=== PATIENT | female | born 1935 | race Caucasian/White ===

== ENCOUNTER 2018-08-16 09:11 | Outpatient (CLI) | payer MEDICARE, MEDICAID ==
--- NOTE | 2018-08-16 11:20 | ULT ---
TRANSABDOMINAL PELVIC ULTRASOUND: Indication: Uterine leiomyoma. Technique: Transabdominal ultrasound of the pelvis was performed. FINDINGS: Uterus is mildly heterogeneous but does not significantly enlarged with uterine measurements recorded at 5.6 x 5.6 x 2.6 cm. The endometrial stripe is not delineated by ultrasound. The right ovary is not identified. The left ovary is poorly seen and is measured at 2.5 x 3.7 cm. A hypoechoic area within this left ova ry may represent a small cyst measuring approximately 1.5 cm. Blood flow could not be confirmed due t o poor visualization due to technical difficulties. IMPRESSION: 1. Overall suboptimal exam. Transabdominal only study was performed. Patient refused endovaginal stud y. Uterus is heterogeneous although a distinct fibroid is not seen on this study. Uterine measurement s are given above. 2. Question small left ovarian cyst. 3. Right ovary not identified. POS: [facility]
== END 2018-08-16 09:12 | disposition home or self-care (01) ==
LOC: SCSULT 09:11
PROVIDERS: ATTEND Internal Medicine Geriatric Medicine
DX: D25.9 Leiomyoma of uterus, unspecified (principal)
CPT/HCPCS: 76856

== ENCOUNTER 2018-09-28 10:55 | Outpatient (CLI) | payer MEDICARE, MEDICAID ==
--- NOTE | 2018-09-28 11:41 | MMO ---
BILATERAL SCREENING MAMMOGRAM: Date: 09/28/18 HISTORY: 83-year-old female. Routine screening mammography. COMPARISON: None. Baseline mammogram. TECHNIQUE: CC and MLO views of both breasts, along with a cleavage view, are submitted for interpretation. This patient's mammogram was reviewed with the assistance of computer-aided detection. FINDINGS: The breasts are composed of scattered fibroglandular tissue. Bilaterally, no suspicious dominant mass , architectural distortion, or suspicious calcifications. Benign-appearing calcification in left [address]. Right retroareolar intramammary lymph node is noted. IMPRESSION: BIRADS 2: Benign Finding(s) RECOMMENDATION: Annual mammogram. POS: [facility]
== END 2018-09-28 10:56 | disposition home or self-care (01) ==
LOC: SCSMAMMO 10:55 → MERGE 10:55 → SCSMAMMO 10:56
PROVIDERS: ATTEND Internal Medicine Geriatric Medicine
DX: Z12.31 Encounter for screening mammogram for malignant neoplasm of breast (principal)
CPT/HCPCS: 77067

== ENCOUNTER 2019-05-19 20:40 | Observation (INO) | payer MEDICARE, MEDICAID ==
[2019-05-19 20:58] LABS: #Basophils 0.1 thou/uL (0.0-0.2); #Eosinphils 0.3 thou/uL (0.0-0.7); #Monocytes 0.8 thou/uL (0.11-0.59); #Neutrophils 4.5 thou/uL (1.40-6.50); %Basophils 1.6 % (0.0-1.0); %Eosinophils 3.5 % (0.0-10.0); %Lymphocytes 34.3 % (21.0-51.0); %Monocytes 9.2 % (0.0-10.0); %Neutrophils 51.4 % (42.0-75.0); Hemoglobin 14.1 g/dL (12.0-16.0); Mean Corpuscular HGB CONC 32.9 g/dL (32.0-36.0); Mean Corpuscular Hemoglobin 32.2 pg (27.0-31.0); Mean Corpuscular Volume 98.1 fL (78.0-98.0); Mean Platelet Volume 8.9 fL (7.4-10.4); Platelet Count 232 thou/uL (130-400); RBC Distribution Width 12.2 % (11.5-14.5); Red Blood Cell (RBC) Count 4.38 mill/uL (4.20-5.40); White Blood Cell (WBC) Count 8.7 thou/uL (4.8-10.8)
[2019-05-19] MEDS ORDERED: Aspirin Chewable 81 MG TAB ONE (21:07)
[2019-05-19] MEDS ORDERED: Nitroglycerin 0.4 MG TAB (25 Tab Bottle) ONE (21:07)
[2019-05-19] MEDS ORDERED: Nitroglycerin 2% Ointment 1 INCH/1 GM Packet ONE (21:11)
--- NOTE | 2019-05-19 21:12 | RAD ---
Exam: Chest one view: HISTORY: Chest pain FINDINGS: Postop midline sternotomy. Minimal horizontal linear parenchymal changes in the left midlung zone hav e a chronic appearance. No confluent pneumonia, overt edema, or pleural effusion. IMPRESSION: Minimal stable chronic lung changes. No significant acute intrathoracic disease.
[2019-05-19 21:23] LABS: ALT (SGPT) 13 U/L (8-55); AST (SGOT) 16 U/L (5-34); Albumin 4.2 g/dL (3.4-4.8); Alkaline Phosphatase 126 U/L (40-110); Anion Gap 17 mmol/L (10-20); BUN (Urea Nitrogen) 24 mg/dL (9.8-20.1); Bilirubin, Total 0.5 mg/dL (0.2-1.2); CK (CPK) 46 U/L (29-168); Calc. Creatinine Clearance 0 mL/min (70-130); Calcium 10.1 mg/dL (7.8-10.44); Carbon Dioxide 23 mmol/L (23-31); Chloride 103 mmol/L (98-107); Estimated GFR-MDRD 33; Globulin 2.7 g/dL (2.4-3.5); Glucose 131 mg/dL (83-110); Potassium 4.1 mmol/L (3.5-5.1); Protein, Total 6.9 g/dL (6.0-8.3); Sodium 139 mmol/L (136-145)
[2019-05-19] MEDS ORDERED: Ondansetron ODT 4 MG TAB SL PRN (23:09)
[2019-05-19] MEDS ORDERED: Acetaminophen 325 MG TAB PO PRN (23:09)
[2019-05-19] MEDS ORDERED: Ondansetron PF 4 MG/2 ML Vial IVP PRN (23:09)
[2019-05-19 23:11] VITALS: BMI 39.6
[2019-05-20 00:03] LABS: Troponin I Less than 0.010 ng/mL (< 0.028)
[2019-05-20] MEDS ORDERED: Nitroglycerin 0.4 MG TAB (25 Tab Bottle) PO PRN (00:51)
--- NOTE | 2019-05-20 01:40 | PDOC.EVN ---
Event Note - Event Note Event Note: [id number] HP
[2019-05-20] MEDS: Dextrose 5 %-0.45 % NaCl 1,000 ML IV SCH ×2 (02:17→15:21)
--- NOTE | 2019-05-20 02:29 | HP ---
CHIEF COMPLAINT: Chest pain. HISTORY OF PRESENT ILLNESS: Ms. Hilliard is an -ekto-arg female with past medical history of coronary artery disease, coronary artery bypass graft surgery, GERD, among others, presents to the emergency room with a chief complaint of chest pain. As per patient, she was really doing well earlier today, and she was feeling good. After that, she started having sudden onset of sharp pain. She took nitroglycerin without relief. The pain is described as sharp, not radiating. Initial workup in the emergency room including troponin and EKG unremarkable. The patient is being admitted to hospital for further management. PAST MEDICAL HISTORY: 1. Coronary artery disease. 2. Obesity. 3. GERD. PAST SURGICAL HISTORY: Coronary artery bypass graft surgery. SOCIAL HISTORY: Denies history of smoking, alcohol drinking, or drug abuse. FAMILY HISTORY: Reviewed and noncontributory. ALLERGIES: NO KNOWN ALLERGIES. HOME MEDICATIONS: Please see home medication reconciliation form for updated medications. REVIEW OF SYSTEMS: Review of 14 systems negative except what is mentioned in the history of present illness. PHYSICAL EXAMINATION: GENERAL: The patient is awake, alert, oriented, does not appear to be in acute distress. VITAL SIGNS: Blood pressure 156/76, pulse 82, respiratory rate is 18, temperature 98.1. HEAD AND NECK: Normocephalic, atraumatic. NECK: Supple. No JVD. CHEST: Fair bilateral air entry. HEART: S1, S2. Regular. ABDOMEN: Soft, nontender. Bowel sounds present. NEUROLOGIC: Awake, alert, oriented x3. PSYCHIATRIC: Normal mood. EXTREMITIES: No clubbing, no cyanosis. LABORATORY DATA: CBC reviewed, unremarkable. Chemistry; BUN is 24, creatinine 1.5, glucose 131, otherwise unremarkable. Troponin less than 0.01. ASSESSMENT: 1. Acute chest pain. 2. Coronary artery disease. 3. History of coronary artery bypass graft surgery. 4. Gastroesophageal reflux disease. PLAN: 1. Admit. 2. Telemetry monitoring. 3. Aspirin. 4. Serial cardiac enzymes. 5. 2D echo. 6. Consult Cardiology in a.m. for evaluation and further recommendations. 7. Reconcile home medications. 8. Deep venous thrombosis prophylaxis, early ambulation/SCD. 9. Expected length of stay at least 1 midnight if the patient is stable and further workup negative. Job ID: [id number]
[2019-05-20 02:35] LABS: Troponin I Less than 0.010 ng/mL (< 0.028)
[2019-05-20 04:50] LABS: Anion Gap 11 mmol/L (10-20); BUN (Urea Nitrogen) 21 mg/dL (9.8-20.1); Calc. Creatinine Clearance 53 mL/min (70-130); Calcium 9.5 mg/dL (7.8-10.44); Carbon Dioxide 24 mmol/L (23-31); Cardiac Risk 2.7 (Less than 4.5); Chloride 107 mmol/L (98-107); Cholesterol 122 mg/dl (< 200 Desired); Estimated GFR-MDRD 46; Glucose 112 mg/dL (83-110); HDL Cholesterol 45 mg/dL (>60 Neg Risk); LDL Cholesterol, Calculated 61 mg/dL; Sodium 138 mmol/L (136-145); Triglycerides 78 mg/dL (Less than 150)
[2019-05-20] MEDS: Heparin 5,000 UNITS/ML VIAL SC SCH ×2 (08:30→20:56)
[2019-05-20] MEDS: Aspirin 325 mg Enteric Coated Tablet PO SCH (08:30)
[2019-05-20] MEDS ORDERED: Prevnar 13-Val Conj/PF 0.5 ML SYRINGE IM ONE (09:00)
[2019-05-20] MEDS ORDERED: Acetaminophen 500 MG TAB PO PRN (13:47)
--- NOTE | 2019-05-20 16:40 | DIS ---
DATE OF ADMISSION: 05/19/2019 DATE OF DISCHARGE: 05/20/2019 DISCHARGE DIAGNOSES: 1. Chest pain, likely musculoskeletal. 2. Acute kidney injury on chronic kidney disease, stage 3, improved. 3. Coronary artery disease, chronic and stable. 4. Dyslipidemia. 5. Hypertension, stable. CONSULTATIONS: None. PERTINENT LABORATORY AND X-RAY FINDINGS: Creatinine ranged between 1.14 to 1.51. Estimated GFR ranged between 33 to 46. Troponin I negative x3. BNP 55. Total cholesterol 122, triglyceride 78, HDL 45, LDL 61. CBC within normal limits. Portable chest x-ray dated 05/19/2019, showed no acute cardiopulmonary process. 2D transthoracic echocardiogram dated 05/20/2019, showed ejection fraction of 55% to 60%. Moderate left atrial enlargement. Moderate mitral valve regurgitation. HOSPITAL COURSE: The patient was observed on the telemetry unit after initially presenting with chest pain. The patient underwent evaluation including cardiac workup with serial troponin I negative x3. Telemetry monitoring showed no evidence of acute arrhythmia or dysrhythmia and the patient overall remained clinically stable. The patient was noted with acute kidney injury in the context of known chronic kidney disease stage 3, receiving IV fluids with overall improvement in renal function by the time of discharge. The patient was encouraged in increasing free water intake and monitoring renal function on a long-term basis. Overall, the patient has remained clinically stable through the remainder of the hospital course. I have examined the patient at the time of discharge and discussed followup instructions. The patient verbalized understanding and agreement ready for discharge on 05/20/2019. DISCHARGE MEDICATIONS: 1. Fosamax 70 mg p.o. q.7 days. 2. Enteric-coated aspirin 81 mg p.o. daily. 3. Meclizine 12.5 mg p.o. b.i.d. p.r.n. 4. Lopressor 12.5 mg p.o. b.i.d. 5. Aleve 220 mg p.o. b.i.d. p.r.n. Limit use due to chronic kidney disease, stage 3. 6. Procardia XL 30 mg p.o. daily. 7. Nitroglycerin 0.4 mg sublingually p.r.n. chest pain. 8. Pravachol 80 mg p.o. at bedtime. 9. Clotrimazole/betamethasone cream applied to affected area b.i.d. p.r.n. FOLLOWUP: The patient may follow up with her primary care provider, Nina Gutierrez. CONDITION ON DISCHARGE: Stable. ACTIVITY: Ad-babak. DIET: Heart healthy. CODE STATUS: Full. DISPOSITION: To home 05/20/2019. Job ID: [id number]
--- NOTE | 2019-05-20 19:39 | CON ---
DATE OF CONSULTATION: HISTORY OF PRESENT ILLNESS: Gaby Hilliard is an 83-year-old white female, who underwent bypass surgery in [place] at [facility] approximately 2 years ago. She states that before this surgery, she went to the hospital. She thought it was indigestion, which was tightness in the lower sternal epigastric region. She has not had that type of discomfort since bypass surgery. She states that no veins were taken from her legs and only used the artery on the inside of her chest, although she is uncertain how many bypasses were performed. She was hospitalized here in September 2018, and found to have normal adenosine Cardiolite test after being admitted for chest pain. She states she is moving and has been working packing. Then, last night at approximately 8:00 p.m. while washing dishes, she started to have left upper chest pressure. She denies any shortness of breath, diaphoresis, nausea, or vomiting with this. She also noted that if she would put pressure on the area that it would hurt more. There was no pleuritic component to the pain. She ultimately came to the emergency room and with topical nitrates, her pain resolved after approximately 6 hours. During this 6 hours, she had continual pain. PAST MEDICAL HISTORY: Hypertension, hypercholesterolemia, and obesity. No history of diabetes. MEDICATIONS: 1. Fosamax 70 mg q.7 days. 2. Aspirin 81 daily. 3. Antivert 12.5 mg b.i.d. p.r.n. 4. Metoprolol tartrate 12.5 mg b.i.d. 5. Aleve 220 b.i.d. p.r.n. 6. Nifedipine 30 q.a.m. 7. Nitroglycerin p.r.n. sublingually. 8. Pravastatin 80 at bedtime. ALLERGIES: NONE. SOCIAL HISTORY: She does not smoke or drink. FAMILY HISTORY: Unremarkable. REVIEW OF SYSTEMS: A 10-point review of systems is otherwise unremarkable. PHYSICAL EXAMINATION: VITAL SIGNS: Blood pressure 139/84 and pulse of 71. HEENT: PERRL. NECK: Supple. CHEST: Clear. CARDIAC: S1 and S2 normal without any S3, S4, or murmurs. Carotid upstrokes normal without bruits. ABDOMEN: Normal bowel sounds without tenderness or organomegaly. The abdomen is obese. EXTREMITIES: Revealed no clubbing, cyanosis, or edema. NEUROLOGIC: Grossly intact. SKIN: Warm and dry. MUSCULOSKELETAL: Revealed palpable left chest tenderness, which reproduces her pain. LABORATORY DATA: EKG reveals normal sinus rhythm with incomplete right bundle-branch block, possible old inferior infarction, anterolateral T-wave changes. Hemoglobin 14.1, hematocrit 42.9, white count 8700, platelets 232,000. Sodium 138, potassium 4.0, chloride 107, carbon dioxide 24, BUN 21, creatinine 1.12. Cholesterol 122, triglycerides 78, HDL 45, LDL 61. BNP 54.5. IMPRESSION: 1. Chest wall pain, probably related to packing and getting ready to move. 2. History of coronary artery bypass graft with presumably only HONG use for bypass. Surgery was approximately 2 years ago. 3. Cardiac pain prior to bypass surgery was epigastric and lower sternal pressure, which is not which she is complaining of now. 4. Hypertension. 5. Hypercholesterolemia. 6. Obesity. PLAN: Ms. Hilliard's pain appears to be chest wall in nature. She did have a Cardiolite over 6 months ago, and so this will be repeated to reassure ourselves such she does not have any significant ischemia. If this is normal, then I do not feel any further evaluation is warranted. Job ID: [id number] [facility]
[2019-05-20] MEDS ORDERED: diphenhydrAMINE 25 MG CAP PO PRN (23:59)
[2019-05-20] MEDS ORDERED: Calcium Carbonate 500 MG ChewTAB PO PRN (23:59)
[2019-05-21] MEDS: Aspirin 325 mg Enteric Coated Tablet PO SCH (09:09)
[2019-05-21] MEDS: Heparin 5,000 UNITS/ML VIAL SC SCH (09:11)
[2019-05-21 12:43] VITALS: BP 152/79; TEMP 97.6
--- NOTE | 2019-05-21 12:51 | NM ---
NUCLEAR MEDICINE CARDIAC MYOCARDIAL PERFUSION SPECT EJECTION FRACTION STUDY WALL MOTION CINE: DATE: 05/21/2019 HISTORY: 83-year-old female with coronary artery disease, hypertension, and dyslipidemia, presents with chest pain TECHNIQUE: Number of days: 2 Rest study: Technetium 99m-sestamibi (Cardiolite) dose: 31.1 mCi Pharmacologic stress: Adenosine dose: 47.6 mg Stress study: Technetium 99m-sestamibi (Cardiolite) dose: 33.0 mCi FINDINGS: CARDIAC (MYOCARDIAL PERFUSION) SPECT Distribution of sestamibi is homogeneous throughout the left ventricle, with no fixed or reversible m yocardial perfusion defects. EJECTION FRACTION STUDY Left ventricular EF = 90 % WALL MOTION CINE The left ventricular wall motion is normal. There is normal systolic wall thickening. IMPRESSION: Normal.
[2019-05-21] MEDS ORDERED: ADENOSINE 60 MG/20 ML VIAL ONE (19:45)
--- NOTE | 2019-05-22 09:33 | DIS ---
DATE OF ADMISSION: 05/19/2019 DATE OF DISCHARGE: 05/21/2019 ADDENDUM: HOSPITAL COURSE: The patient's discharge was held for approximately 24 hours, undergoing cardiac stress testing on 05/20 and 05/21/2019. Cardiolite stress testing showed no evidence for reversible or fixed ischemia with calculated ejection fraction of 90%. Telemetry monitoring showed sinus mechanism and the patient had stable vital signs throughout the hospital course. Overall, the patient remained clinically stable and ready for discharge on 05/21/2019. I have examined the patient at time of discharge and discussed followup instructions. The patient verbalized understanding and in agreement ready for discharge. Please see dictated discharge summary of 05/20/2019, for full details, medication reconciliation and followup instructions. Job ID: [id number]
== END 2019-05-21 14:38 | disposition home or self-care (01) ==
LOC: SCSER 20:40 → 2SW 21:40
PROVIDERS: ADMIT Internal Medicine; ATTEND Internal Medicine
DX: R07.9 Chest pain, unspecified (principal); I25.10 Atherosclerotic heart disease of native coronary artery without angina pectoris; K21.9 Gastro-esophageal reflux disease without esophagitis; I12.9 Hypertensive chronic kidney disease with stage 1 through stage 4 chronic kidney disease, or unspecified chronic kidney disease; N18.3 Chronic kidney disease, stage 3 (moderate); N17.9 Acute kidney failure, unspecified; E66.9 Obesity, unspecified; E78.00 Pure hypercholesterolemia, unspecified; Z68.39 Body mass index [BMI] 39.0-39.9, adult; Z79.82 Long term (current) use of aspirin; Z79.899 Other long term (current) drug therapy; Z95.1 Presence of aortocoronary bypass graft
CPT/HCPCS: 71045; 78452; 80048; 80053; 80061; 82550; 83880; 84484 ×3; 85025; 90670; 93005; 93017; 93306; 94760; 96360; 96361; 96372; 99285; A9500; G0009; G0378 ×4; 36415; 90471; J0153; J1644; Q0163

== ENCOUNTER 2023-09-11 15:41 | Inpatient (IN) | payer OTHER ==
[~2023-09-11 15:41] MED LIST: Iopamidol-370 76% 500 ML MDV (1 ML CHARGE) ONE
[2023-09-11 16:08] LABS: #Basophils 0.1 thou/uL (0.0-0.2); #Eosinphils 0.2 thou/uL (0.0-0.7); #Monocytes 1.3 thou/uL (0.11-0.59); #Neutrophils 10.5 thou/uL (1.40-6.50); %Basophils 0.5 % (0.0-1.0); %Eosinophils 1.6 % (0.0-10.0); %Lymphocytes 11.5 % (21.0-51.0); %Monocytes 9.7 % (0.0-10.0); Hematocrit 32.3 % (36.0-47.0); Hemoglobin 10.5 g/dL (12.0-16.0); Mean Corpuscular HGB CONC 32.5 g/dL (32.0-36.0); Mean Corpuscular Hemoglobin 29.5 pg (27.0-31.0); Mean Corpuscular Volume 90.7 fl (78.0-98.0); Mean Platelet Volume 10.6 fL (7.4-10.4); Platelet Count 335 10x3/uL (130-400); RBC Distribution Width 14.4 % (11.5-14.5); Red Blood Cell (RBC) Count 3.56 mill/uL (4.20-5.40); White Blood Cell (WBC) Count 13.8 10x3/uL (4.8-10.8)
[2023-09-11 16:18] LABS: Prothrombin Time 14.9 sec (12.0-14.7)
[2023-09-11 16:19] LABS: PTT 22.3 sec (22.9-36.1)
[2023-09-11 16:22] LABS: INR-International Normal Ratio 1.2
[2023-09-11 16:33] LABS: Acetaminophen Less than 10 mcg/mL (10.0-30.0); Alcohol Less than 10.0 mg/dL (Less than 10); Salicylate Less than 8.0 mg/dL (15.0-30.0)
[2023-09-11 16:35] LABS: Troponin I 0.027 ng/mL (< 0.028)
[2023-09-11 16:37] LABS: Bilirubin Negative (Negative); Blood, Urine Trace (Negative); CAUTI Indications for Culture Alt mental st,lethar; Clarity Clear (Clear); Glucose, Urine (Dipstick) Normal (Negative); Ketone, Urine Negative (Negative); Leukocyte 250 Leu/uL (Negative); Nitrite Negative (Negative); Protein, Urine (Dipstick) 30 mg/dL (Neg-Trace); RBC/HPF 0-3 HPF (0-3); Squamous Epithelial 0-3 HPF (0-3); Urobilinogen Normal mg/dL (Less than 2); WBC/HPF 21-50 HPF (0-3)
[2023-09-11 16:41] LABS: Amphetamine Not Detected (NotDetected); Barbiturates Screen Not Detected (NotDetected); Benzodiazepine Screen Not Detected (NotDetected); Cocaine Metabolite Screen Not Detected (NotDetected); Methadone Not Detected (NotDetected); Methamphetamine Not Detected (NotDetected); Opiate Screen Not Detected (NotDetected); Oxycodone Screen Not Detected (NotDetected); Phencyclidine (PCP) Not Detected (NotDetected); THC/Cannabinoid Screen Not Detected (NotDetected); Tricyclic Screen Not Detected (NotDetected)
[2023-09-11 16:42] LABS: Bacteria/HPF 1+ HPF (None Seen); Urine Culture Reflex Yes Yes
[2023-09-11 17:05] LABS: ALT (SGPT) 11 U/L (8-55); AST (SGOT) 12 U/L (5-34); Albumin 3.7 g/dL (3.4-4.8); Alkaline Phosphatase 93 U/L (40-110); Anion Gap 15 mmol/L (10-20); BUN (Urea Nitrogen) 33 mg/dL (9.8-20.1); Bilirubin, Total 0.5 mg/dL (0.2-1.2); Calc. Creatinine Clearance 0 mL/min (70-130); Calcium 9.5 mg/dL (7.8-10.44); Carbon Dioxide 20 mmol/L (23-31); Chloride 108 mmol/L (98-107); Estimated GFR 19; Globulin 3.3 g/dL (2.4-3.5); Glucose 137 mg/dL (83-110); Potassium 3.9 mmol/L (3.5-5.1); Sodium 139 mmol/L (136-145)
[2023-09-11] MEDS ORDERED: niCARdipine 25 MG in Sodium Chloride 0.9% 250 ML 250 ML IVPB PRN (17:53)
[2023-09-11] MEDS ORDERED: Docusate 100 MG CAP PO PRN (17:53)
[2023-09-11] MEDS ORDERED: Labetalol HCl 100 MG/20 ML VIAL SLOW IVP PRN (17:53)
[2023-09-11] MEDS ORDERED: cefTRIAXone (ROCEPHIN) 1 GM VIAL ONE (18:14)
[2023-09-11] MEDS ORDERED: Sodium Chloride 0.9% 100 ML ONE (18:14)
[2023-09-11] MEDS ORDERED: Tenecteplase 50 MG ONE (19:12)
[2023-09-11] MEDS: Communication Order-Pharmacy FS SCH (22:16)
[2023-09-11] MEDS: Atorvastatin Calcium 40 MG TAB PO SCH (22:17)
[2023-09-11] MEDS: cefTRIAXone\\ROCEPHIN 1 GM in Sodium Chloride 0.9% 100 ML IVPB SCH (22:21)
[2023-09-11] MEDS: Pantoprazole 40 MG VIAL IVP SCH (22:22)
[2023-09-11] MEDS: Lactated Ringer's 1,000 ML IV SCH (22:22)
[2023-09-12] MEDS: Lorazepam 2 MG/ML VIAL SLOW IVP SCH (06:19)
[2023-09-12] MEDS ORDERED: Aspirin 300 MG Suppository PR SCH ×2 (09:00→17:00)
[2023-09-12] MEDS: Sodium Chloride 0.9% 1,000 ML IV SCH (14:33)
[2023-09-12] MEDS: Pantoprazole 40 MG VIAL IVP SCH ×2 (14:34→14:35)
[2023-09-12] MEDS: Aspirin 300 MG Suppository PR SCH (17:42)
[2023-09-12] MEDS: Carvedilol 6.25 MG TAB PO SCH (17:42)
[2023-09-12 18:47] LABS: #Eosinphils 0.3 thou/uL (0.0-0.7); #Monocytes 0.7 thou/uL (0.11-0.59); #Neutrophils 8.3 thou/uL (1.40-6.50); %Basophils 0.4 % (0.0-1.0); %Eosinophils 2.7 % (0.0-10.0); %Lymphocytes 13.6 % (21.0-51.0); %Monocytes 6.5 % (0.0-10.0); %Neutrophils 76.2 % (42.0-75.0); Hematocrit 32.1 % (36.0-47.0); Hemoglobin 10.4 g/dL (12.0-16.0); Mean Corpuscular HGB CONC 32.4 g/dL (32.0-36.0); Mean Corpuscular Hemoglobin 29.5 pg (27.0-31.0); Mean Corpuscular Volume 91.2 fl (78.0-98.0); Mean Platelet Volume 10.4 fL (7.4-10.4); Platelet Count 280 10x3/uL (130-400); RBC Distribution Width 14.3 % (11.5-14.5); Red Blood Cell (RBC) Count 3.52 mill/uL (4.20-5.40); White Blood Cell (WBC) Count 10.8 10x3/uL (4.8-10.8)
[2023-09-12 19:00] LABS: INR-International Normal Ratio 1.3; PTT 29.8 sec (22.9-36.1); Prothrombin Time 15.7 sec (12.0-14.7)
[2023-09-12 19:06] LABS: Anion Gap 11 mmol/L (10-20); BUN (Urea Nitrogen) 21 mg/dL (9.8-20.1); Calc. Creatinine Clearance 37 mL/min (70-130); Calcium 8.9 mg/dL (7.8-10.44); Carbon Dioxide 22 mmol/L (23-31); Cardiac Risk 3.3 (Less than 4.5); Chloride 112 mmol/L (98-107); Cholesterol 105 mg/dl (< 200 Desired); Estimated GFR 39; Glucose 85 mg/dL (83-110); HDL Cholesterol 32 mg/dL (>60 Neg Risk); LDL Cholesterol, Calculated 61 mg/dL; Potassium 3.8 mmol/L (3.5-5.1); Sodium 141 mmol/L (136-145); Triglycerides 58 mg/dL (Less than 150)
[2023-09-12] MEDS ORDERED: Nystatin Powder 15 GM BOT TOP PRN (21:26)
[2023-09-13 04:08] LABS: #Basophils 0.1 thou/uL (0.0-0.2); #Eosinphils 0.4 thou/uL (0.0-0.7); #Monocytes 1.1 thou/uL (0.11-0.59); #Neutrophils 9.2 thou/uL (1.40-6.50); %Basophils 0.4 % (0.0-1.0); %Eosinophils 3.3 % (0.0-10.0); %Lymphocytes 12.1 % (21.0-51.0); %Monocytes 8.9 % (0.0-10.0); %Neutrophils 74.7 % (42.0-75.0); Hematocrit 30.6 % (36.0-47.0); Hemoglobin 9.9 g/dL (12.0-16.0); Mean Corpuscular HGB CONC 32.4 g/dL (32.0-36.0); Mean Corpuscular Hemoglobin 29.3 pg (27.0-31.0); Mean Corpuscular Volume 90.5 fl (78.0-98.0); Mean Platelet Volume 11.3 fL (7.4-10.4); Platelet Count 288 10x3/uL (130-400); RBC Distribution Width 14.3 % (11.5-14.5); Red Blood Cell (RBC) Count 3.38 mill/uL (4.20-5.40); White Blood Cell (WBC) Count 12.3 10x3/uL (4.8-10.8)
[2023-09-13] MEDS: hydrALAZINE 20 MG/ML VIAL SLOW IVP PRN (04:19)
[2023-09-13] MEDS: Acetaminophen 650 MG Suppository PR PRN (04:21)
[2023-09-13 04:56] LABS: Anion Gap 13 mmol/L (10-20); Calcium 8.8 mg/dL (7.8-10.44); Carbon Dioxide 19 mmol/L (23-31); Chloride 113 mmol/L (98-107); Glucose 71 mg/dL (83-110); Potassium 3.8 mmol/L (3.5-5.1); Sodium 141 mmol/L (136-145)
[2023-09-13 04:58] LABS: Calc. Creatinine Clearance 40 mL/min (70-130); Estimated GFR 42
[2023-09-13 04:59] LABS: BUN (Urea Nitrogen) 19 mg/dL (9.8-20.1)
[2023-09-13] MEDS: Sodium Chloride 0.9% 1,000 ML IV SCH (09:45)
[2023-09-13] MEDS: Aspirin 325 MG TAB PO SCH (17:12)
[2023-09-13] MEDS: Haloperidol Lactate 5 MG/ML VIAL IM SCH (19:27)
[2023-09-14 04:10] LABS: #Basophils 0.1 thou/uL (0.0-0.2); #Eosinphils 0.3 thou/uL (0.0-0.7); #Monocytes 1.3 thou/uL (0.11-0.59); #Neutrophils 10.5 thou/uL (1.40-6.50); %Basophils 0.5 % (0.0-1.0); %Eosinophils 2.3 % (0.0-10.0); %Lymphocytes 7.9 % (21.0-51.0); %Monocytes 9.5 % (0.0-10.0); %Neutrophils 78.8 % (42.0-75.0); Hematocrit 32.8 % (36.0-47.0); Hemoglobin 10.3 g/dL (12.0-16.0); Mean Corpuscular HGB CONC 31.4 g/dL (32.0-36.0); Mean Corpuscular Hemoglobin 29.3 pg (27.0-31.0); Mean Corpuscular Volume 93.2 fl (78.0-98.0); Mean Platelet Volume 11.1 fL (7.4-10.4); Platelet Count 304 10x3/uL (130-400); RBC Distribution Width 14.5 % (11.5-14.5); Red Blood Cell (RBC) Count 3.52 mill/uL (4.20-5.40); White Blood Cell (WBC) Count 13.3 10x3/uL (4.8-10.8)
[2023-09-14 04:34] LABS: Anion Gap 15 mmol/L (10-20); BUN (Urea Nitrogen) 17 mg/dL (9.8-20.1); Calc. Creatinine Clearance 42 mL/min (70-130); Calcium 8.7 mg/dL (7.8-10.44); Carbon Dioxide 15 mmol/L (23-31); Chloride 114 mmol/L (98-107); Estimated GFR 44; Glucose 71 mg/dL (83-110); Potassium 3.8 mmol/L (3.5-5.1); Sodium 140 mmol/L (136-145)
[2023-09-14] MEDS: Dextrose 5 %-0.45 % NaCl 1,000 ML IV SCH (10:34)
[2023-09-14] MEDS: Aspirin 300 MG Suppository PR SCH (17:25)
[2023-09-14] MEDS: Clopidogrel Bisulfate 75 MG TAB PO SCH (17:32)
[2023-09-14] MEDS: Aspirin Chewable 81 MG TAB PO SCH (18:00)
[2023-09-14] MEDS: Haloperidol Lactate 5 MG/ML VIAL IM SCH (20:03)
[2023-09-15 05:52] LABS: #Eosinphils 0.5 thou/uL (0.0-0.7); #Monocytes 1.1 thou/uL (0.11-0.59); #Neutrophils 8.2 thou/uL (1.40-6.50); %Basophils 0.4 % (0.0-1.0); %Eosinophils 4.5 % (0.0-10.0); %Lymphocytes 11.2 % (21.0-51.0); %Monocytes 10.2 % (0.0-10.0); Hematocrit 29.5 % (36.0-47.0); Hemoglobin 9.3 g/dL (12.0-16.0); Mean Corpuscular HGB CONC 31.5 g/dL (32.0-36.0); Mean Corpuscular Hemoglobin 29.2 pg (27.0-31.0); Mean Corpuscular Volume 92.5 fl (78.0-98.0); Mean Platelet Volume 11.1 fL (7.4-10.4); Platelet Count 304 10x3/uL (130-400); RBC Distribution Width 14.3 % (11.5-14.5); Red Blood Cell (RBC) Count 3.19 mill/uL (4.20-5.40); White Blood Cell (WBC) Count 11.2 10x3/uL (4.8-10.8)
[2023-09-15 06:22] LABS: Anion Gap 11 mmol/L (10-20); BUN (Urea Nitrogen) 13 mg/dL (9.8-20.1); Calc. Creatinine Clearance 48 mL/min (70-130); Calcium 8.6 mg/dL (7.8-10.44); Carbon Dioxide 19 mmol/L (23-31); Chloride 113 mmol/L (98-107); Estimated GFR 53; Glucose 113 mg/dL (83-110); Potassium 3.1 mmol/L (3.5-5.1); Sodium 140 mmol/L (136-145)
[2023-09-15] MEDS: Potassium Chloride 20 MEQ in Premix 1 BAG IVPB SCH (09:00)
[2023-09-15] MEDS: NIFEdipine XL 30 MG ER.TAB PO SCH (10:26)
[2023-09-16] MEDS: Lansoprazole 15 MG/5 ML (BATCHED)UDCUP PO SCH (09:49)
[2023-09-16 20:25] LABS: #Basophils 0.1 thou/uL (0.0-0.2); #Eosinphils 0.6 thou/uL (0.0-0.7); #Monocytes 0.8 thou/uL (0.11-0.59); #Neutrophils 5.5 thou/uL (1.40-6.50); %Basophils 0.8 % (0.0-1.0); %Lymphocytes 17.1 % (21.0-51.0); %Monocytes 9.8 % (0.0-10.0); %Neutrophils 64.5 % (42.0-75.0); Hemoglobin 10.2 g/dL (12.0-16.0); Mean Corpuscular HGB CONC 31.9 g/dL (32.0-36.0); Mean Corpuscular Hemoglobin 28.6 pg (27.0-31.0); Mean Corpuscular Volume 89.6 fl (78.0-98.0); Mean Platelet Volume 10.9 fL (7.4-10.4); Platelet Count 238 10x3/uL (130-400); RBC Distribution Width 14.3 % (11.5-14.5); Red Blood Cell (RBC) Count 3.57 mill/uL (4.20-5.40); White Blood Cell (WBC) Count 8.5 10x3/uL (4.8-10.8)
[2023-09-16 20:39] LABS: Anion Gap 12 mmol/L (10-20); BUN (Urea Nitrogen) 9 mg/dL (9.8-20.1); Calc. Creatinine Clearance 56 mL/min (70-130); Calcium 8.9 mg/dL (7.8-10.44); Carbon Dioxide 17 mmol/L (23-31); Chloride 114 mmol/L (98-107); Estimated GFR 63; Glucose 92 mg/dL (83-110); Potassium 3.5 mmol/L (3.5-5.1); Sodium 139 mmol/L (136-145)
[2023-09-17 04:23] LABS: #Basophils 0.1 thou/uL (0.0-0.2); #Eosinphils 0.5 thou/uL (0.0-0.7); #Monocytes 0.7 thou/uL (0.11-0.59); #Neutrophils 4.3 thou/uL (1.40-6.50); %Basophils 1.1 % (0.0-1.0); %Eosinophils 6.9 % (0.0-10.0); %Lymphocytes 21.9 % (21.0-51.0); %Monocytes 9.6 % (0.0-10.0); %Neutrophils 59.7 % (42.0-75.0); Hematocrit 28.9 % (36.0-47.0); Mean Corpuscular HGB CONC 31.1 g/dL (32.0-36.0); Mean Corpuscular Hemoglobin 28.6 pg (27.0-31.0); Mean Corpuscular Volume 91.7 fl (78.0-98.0); Platelet Count 325 10x3/uL (130-400); RBC Distribution Width 14.6 % (11.5-14.5); Red Blood Cell (RBC) Count 3.15 mill/uL (4.20-5.40); White Blood Cell (WBC) Count 7.2 10x3/uL (4.8-10.8)
[2023-09-17 04:39] LABS: Anion Gap 9 mmol/L (10-20); BUN (Urea Nitrogen) 8 mg/dL (9.8-20.1); Calc. Creatinine Clearance 57 mL/min (70-130); Calcium 8.6 mg/dL (7.8-10.44); Carbon Dioxide 20 mmol/L (23-31); Chloride 114 mmol/L (98-107); Estimated GFR 64; Glucose 88 mg/dL (83-110); Potassium 3.4 mmol/L (3.5-5.1); Sodium 140 mmol/L (136-145)
[2023-09-18 08:39] LABS: #Basophils 0.1 thou/uL (0.0-0.2); #Eosinphils 0.6 thou/uL (0.0-0.7); #Monocytes 0.9 thou/uL (0.11-0.59); #Neutrophils 5.2 thou/uL (1.40-6.50); %Basophils 1.1 % (0.0-1.0); %Eosinophils 7.4 % (0.0-10.0); %Monocytes 10.2 % (0.0-10.0); %Neutrophils 60.5 % (42.0-75.0); Hematocrit 33.8 % (36.0-47.0); Hemoglobin 10.5 g/dL (12.0-16.0); Mean Corpuscular HGB CONC 31.1 g/dL (32.0-36.0); Mean Corpuscular Hemoglobin 29.2 pg (27.0-31.0); Mean Corpuscular Volume 94.2 fl (78.0-98.0); Mean Platelet Volume 10.5 fL (7.4-10.4); Platelet Count 341 10x3/uL (130-400); RBC Distribution Width 14.3 % (11.5-14.5); Red Blood Cell (RBC) Count 3.59 mill/uL (4.20-5.40); White Blood Cell (WBC) Count 8.5 10x3/uL (4.8-10.8)
[2023-09-18 09:31] LABS: Anion Gap 11 mmol/L (10-20); BUN (Urea Nitrogen) 7 mg/dL (9.8-20.1); Calc. Creatinine Clearance 58 mL/min (70-130); Carbon Dioxide 20 mmol/L (23-31); Chloride 112 mmol/L (98-107); Estimated GFR 64; Glucose 89 mg/dL (83-110); Potassium 3.7 mmol/L (3.5-5.1); Sodium 139 mmol/L (136-145)
[2023-09-18 09:59] VITALS: BMI 34.1
[2023-09-18] MEDS: hydrALAZINE 20 MG/ML VIAL SLOW IVP PRN (21:06)
[2023-09-20] MEDS ORDERED: Dextrose 50% Abboject 50 ML SYRINGE SLOW IVP PRN (06:43)
[2023-09-20] MEDS ORDERED: Glucagon 1 MG/ML KIT IM PRN (06:43)
[2023-09-20] MEDS ORDERED: Dextrose 5% in Water 1,000 ML IV PRN (06:43)
[2023-09-20] MEDS: Acetaminophen 325 MG TAB PO PRN (09:57)
[2023-09-20] MEDS: Clopidogrel Bisulfate 75 MG TAB PO SCH (13:27)
[2023-09-20] MEDS: Enoxaparin 40 MG (0.4 mL) SYRINGE SC SCH (13:27)
[2023-09-20 16:06] VITALS: BP 134/57; TEMP 97.9
[2023-09-21] MEDS ORDERED: Clopidogrel Bisulfate 75 MG TAB PO SCH (09:00)
[2023-09-21] MEDS ORDERED: Enoxaparin 40 MG (0.4 mL) SYRINGE SC SCH (09:00)
== END 2023-09-20 18:26 | disposition hospice, inpatient (51) | DRG 61 ==
LOC: ERS 15:41 → ERHOLD 16:48 → CCU 21:39 → 2SE 09-14 18:56
PROVIDERS: ADMIT Family Medicine; ATTEND Family Medicine
PROC: 3E03317 Introduction of Other Thrombolytic into Peripheral Vein, Percutaneous Approach (ICD-10-PCS; 2023-09-11)
PROC: 4A00X4Z Measurement of Central Nervous Electrical Activity, External Approach (ICD-10-PCS; principal; 2023-09-12)
DX: I63.9 Cerebral infarction, unspecified (principal); G93.6 Cerebral edema; J96.01 Acute respiratory failure with hypoxia; F03.94 Unspecified dementia, unspecified severity, with anxiety; I48.20 Chronic atrial fibrillation, unspecified; C79.60 Secondary malignant neoplasm of unspecified ovary; N17.9 Acute kidney failure, unspecified; E87.20 Acidosis, unspecified; N39.0 Urinary tract infection, site not specified; G93.40 Encephalopathy, unspecified; Q21.12 Patent foramen ovale; R29.721 NIHSS score 21; I25.10 Atherosclerotic heart disease of native coronary artery without angina pectoris; K21.9 Gastro-esophageal reflux disease without esophagitis; E66.9 Obesity, unspecified; R91.1 Solitary pulmonary nodule; N83.201 Unspecified ovarian cyst, right side; F41.9 Anxiety disorder, unspecified; Z66 Do not resuscitate; C54.1 Malignant neoplasm of endometrium; D64.9 Anemia, unspecified; E87.6 Hypokalemia; I12.9 Hypertensive chronic kidney disease with stage 1 through stage 4 chronic kidney disease, or unspecified chronic kidney disease; N18.9 Chronic kidney disease, unspecified; Z51.5 Encounter for palliative care; Z68.33 Body mass index [BMI] 33.0-33.9, adult; Z95.1 Presence of aortocoronary bypass graft; Z98.890 Other specified postprocedural states; Z79.82 Long term (current) use of aspirin; Z79.899 Other long term (current) drug therapy
CPT/HCPCS: 36415; 36416; 51701; 70450; 70496; 70498; 71045; 80048; 80053; 80061; 80306; 80307; 81001; 83605; 84484; 85025; 85610; 85730; 87077; 87086; 87186; 93005; 93306; 95711; 95819; 96361; 96365; 96375; C9113; J0360; J0696; J1630; J1650; J3101; J3480; J3490; J7042; J7050; J7120; Q9967